=== PATIENT | female | born 1935 | race Two or more races ===

== ENCOUNTER 2018-11-19 00:53 | Inpatient (IN) | payer OTHER ==
[~2018-11-19] VITALS: Ht 160 cm; Wt 545.4 kg
== END 2018-11-28 09:24 | disposition home or self-care (01) | DRG 389 ==
LOC: ER 00:53 → SEC-K 09:22 → MEDJ 09:22
PROVIDERS: ADMIT Internal Medicine Cardiovascular Disease
PROC: BW21ZZZ Computerized Tomography (CT Scan) of Abdomen and Pelvis (ICD-10-PCS; principal; 2018-11-19)
DX: K56.690 Other partial intestinal obstruction (principal); A04.72 Enterocolitis due to Clostridium difficile, not specified as recurrent; I10 Essential (primary) hypertension; K21.9 Gastro-esophageal reflux disease without esophagitis

== ENCOUNTER 2021-10-19 14:00 | Outpatient (CLI) | payer OTHER | END 2021-10-19 14:10 | disposition home or self-care (01) | LOC: PPH VACUNA 14:00 | PROVIDERS: ATTEND Emergency Medicine Pediatric Emergency Medicine | DX: Z23 Encounter for immunization (principal) ==

== ENCOUNTER 2021-11-03 09:57 | Outpatient (CLI) | payer OTHER | END 2021-11-03 10:01 | disposition home or self-care (01) | LOC: NUCLEAR 09:57 | PROVIDERS: ATTEND Internal Medicine Cardiovascular Disease | DX: I73.9 Peripheral vascular disease, unspecified (principal) ==

== ENCOUNTER 2021-11-04 09:31 | Outpatient (CLI) | payer OTHER | END 2021-11-04 09:32 | disposition home or self-care (01) | LOC: NUCLEAR 09:31 | PROVIDERS: ATTEND Internal Medicine Cardiovascular Disease | DX: I87.2 Venous insufficiency (chronic) (peripheral) (principal) ==

== ENCOUNTER 2022-08-10 09:46 | Outpatient (CLI) | payer OTHER | END 2022-08-10 09:47 | disposition home or self-care (01) | LOC: NUCLEAR 09:46 | PROVIDERS: ATTEND Internal Medicine Cardiovascular Disease | DX: R07.9 Chest pain, unspecified (principal); R55 Syncope and collapse ==